=== PATIENT | female | born 1955 | race Caucasian/White ===

== ENCOUNTER 2017-06-21 11:47 | Emergency (ER) | payer BC ==
[2017-06-21] MEDS ORDERED: oxyCODONE HCL/ACETAMINOPHEN 1 TAB TABLET PO ONE (12:09)
--- NOTE | 2017-06-21 12:09 | ERNOTE ---
Upper Extremity HPI - Narrative Date of Service: 06/21/17 - General Extremities Pain Location: wrist: left Time Seen by Provider: 06/21/17 12:03 Source: patient, RN notes reviewed Exam Limitations: no limitations - Immun/Allergies/Home Medications Immunizations: IMMUNIZATION HX Immunizations Up to Date Yes Allergies/Adverse Reactions: Allergies Allergy/AdvReac Type Severity Reaction Status Date / Time No Known Allergies Allergy Unverified 06/21/17 11:58 Home Medications: HOME MEDICATIONS oxyCODONE HCL/ACETAMINOPHEN [Percocet 5 MG/325 MG] 1 - 2 tab PO Q6H PRN #20 tab 06/21/17 [Last Taken Unknown] - History of Present Illness Narrative: 62 year old female brought to the ED by her for an injury to her left wrist. She slipped and fell on their steps, landing on her bottom. She is unsure how she injured the wrist. She also reports that her butt feels numb. Date (Duration): 06/21/17 Occurred: just prior to arrival Location of Incident: home Method of Injury: Reports: fell Reason for Fall: Reports: slipped Loss of Consciousness: Reports: no loss of consciousness Associated Symptoms: Reports: tingling. Denies: weakness, numbness distally Other Injuries: Reports: other - Coccyx Prior Treament: Denies: recently seen Review of Systems - Review of Systems Constitutional: Absent: recent illness, fever, malaise EYE: Present: no symptoms reported ENT: Present: no symptoms reported Respiratory: Absent: shortness of breath, cough Cardiology: Absent: chest pain, syncope Gastrointestinal/Abdominal: Absent: nausea, vomiting, abdominal pain Genitourinary: Present: no symptoms reported Musculoskeletal: Present: back pain, joint pain, joint swelling. Absent: neck pain Skin: Absent: rash, lesions, lumps Neurological: Present: tingling. Absent: headache, dizziness/light-headedness, weakness, numbness Endocrine: Present: no symptoms reported Hematologic/Lymphatic: Present: no symptoms reported Psych: Present: no symptoms reported - Patient's Past Medical History Patient History - Medical: No pertinent hx Patient History - Cardiac/Respiratory: No pertinent hx Patient History - Cancer: No Hx of Cancer Patient History - Surgical Procedures: Back Surgery Patient History - Other: None LMP (females 10-50): Menopausal - Family History Mother Family History - Medical: No pertinent hx Father Family History - Medical: - Social History Living Situations: home Psych History: No pertinent hx Smoking Status: Current every day smoker Cigarettes Packs Per Day: 1 - Immunizations Immunizations Up to Date: Yes Physical Exam - Physical Exam General Appearance: Present: wd/wn, alert, mild distress, anxious Head Exam: Present: normal inspection, no evidence of injury Neck: Present: normal inspection, nontender, supple, full range of motion Respiratory: Present: no respiratory distress, no accessory muscle use Cardiovascular/Chest: Present: normal peripheral pulses Back Exam: Present: no CVA tenderness, vertebral tenderness - lower lumbar and sacral, decreased range of motion Extremity Exam: Present: decreased range of motion - Left wrist, joint swelling - Left wrist. Absent: pedal edema, extremity edema Neurological Exam: Present: alert, oriented, normal mood/affect, no motor/ sensory deficits Skin Exam: Present: normal color, warm/dry ED Progress - Vital Signs Patient's Vital Signs:: I have reviewed the patient's vital signs. Vital Signs: Vital Signs 06/21/17 11:52 Temperature 36.5 C Pulse Rate 71 Respiratory 18 Rate Blood Pressure 104/61 O2 Sat by Pulse 96 Oximetry - X-Ray X-Ray #1 X-Ray: wrist Interpretation: Reviewed by me X-ray Comments: Left Impression: Comminuted, mildly displaced, impacted, intra-articular distal radius fracture. Mildly displaced ulna styloid process fracture. X-Ray #2 X-Ray: hip - Left, and pelvis Interpretation: Reviewed by me X-ray Comments: No acute findings X-Ray #3 X-Ray: Sacrum/coccyx Interpretation: Reviewed by me X-ray Comments: No acute osseous findings - CT/Ultrasound CT/Ultrasound Narrative: Noncontrast lumbar CT shows no acute osseous findings - Progress/Reassessment Chief Complaint: Upper Extremity Injury/Problem Progress:: Improved Plan - Plan Plan: Patient initially reported numbness in her behind. Sensation and motor to lower extremities was intact, and she was bearing weight without difficulty. She went to xray for her wrist films and began to have numbness in her left leg. She was then incontinent of urine when she got up from the table. A lumbar CT was ordered which was negative for acute findings. She was again incontinent with transferring and continued to report left leg numbness. She was able to move the leg against resistance but with some difficulty. Left hip, pelvis and coccyx films were then done which were also negative. Her numbness eventually resolved with repositioning and ambulation. She had no further episodes of incontinence. She had reported no pain relief after taking 1 Percocet, but then improved once her wrist was splinted. Departure Clinical Impression: Fall (on) (from) other stairs and steps, initial encounter Wrist fracture, left Qualifiers: Encounter type: initial encounter Fracture type: closed Qualified Code(s): S62.102A - Fracture of unspecified carpal bone, left wrist, initial encounter for closed fracture Coccyx contusion Qualifiers: Encounter type: initial encounter Qualified Code(s): S30.0XXA - Contusion of lower back and pelvis, initial encounter - Departure Disposition: Home Follow Up Needed Condition: Stable Instructions: Wrist Fracture Treated With Immobilization, [id number] Additional Instructions: Contact orthopedics tomorrow to arrange follow up [phone] until seen by orthopedics, wear sling as needed Ice and elevate wrist You can take Tylenol for mild pain Take Percocet for more severe pain - can cause constipation, you may need a laxative Referrals: Jf Pinto, PAC [[facility]] - Prescriptions: oxyCODONE HCL/ACETAMINOPHEN [Percocet 5 MG/325 MG] 1 - 2 tab PO Q6H PRN #20 tab PRN Reason: Pain
[2017-06-21] MEDS ORDERED: oxyCODONE HCL/ACETAMINOPHEN 1 TAB TABLET ONE (12:11)
[2017-06-21 14:38] VITALS: BP 126/62
== END 2017-06-21 14:36 | disposition home or self-care (01) ==
LOC: ER 11:47
PROC: 2W3DX1Z Immobilization of Left Lower Arm using Splint (ICD-10-PCS; principal; 2017-06-21)
DX: S62.102A Fracture of unspecified carpal bone, left wrist, initial encounter for closed fracture (principal); S30.0XXA Contusion of lower back and pelvis, initial encounter; F17.210 Nicotine dependence, cigarettes, uncomplicated; W10.8XXA Fall (on) (from) other stairs and steps, initial encounter; Y92.008 Other place in unspecified non-institutional (private) residence as the place of occurrence of the external cause

== ENCOUNTER 2017-06-24 12:19 | Day surgery (SDC) | payer BC ==
[~2017-06-24 12:19] MED LIST: RINGER'S SOLUTION,LACTATED 1,000 ML IV PRN; ceFAZolin SODIUM 1 GM VIAL IV PRN
[2017-06-24] MEDS ORDERED: RINGER'S SOLUTION,LACTATED 1,000 ML IV ONE ×2 (13:00→14:40)
[2017-06-24] MEDS ORDERED: RINGER'S SOLUTION,LACTATED 900 ML IV ONE (13:25)
--- NOTE | 2017-06-24 14:43 | OR ---
Operative Report - Dictated Report Narrative: Date: 06/24/2017 Surgeon: Oscar Omer M.D. Agile Test Lead: None Preoperative diagnosis: Closed left Distal radius fracture 3 fragments with intra-articular extension, ulnar styloid fracture Postoperative diagnosis: Closed left Distal radius fracture 3 fragments with intra-articular extension, ulnar styloid fracture Operation: 1 - Open reduction internal fixation of left distal radius fracture 3 fragments with intra-articular extension 2 - Intraoperative interpretation of x-rays 3 -closed treatment of distal ulna fracture Retained implants: [employer] D rad left standard distal radius plate with associated screws Anesthesia: General plus regional Tourniquet time: 29 Minutes at 250 mmHg Estimated blood loss: Minimal Drains: None Specimen: None Complications: None Indications: Mrs. Bolton is a 62-year-old female who injured the left arm after a ground level fall. They were initially treated in the ER and splinted. Seen in the clinic and discuss the options for treatment. She wished to proceed with surgical treatment. The risks and benefits alternatives were discussed. Risks of , blood clots, bleeding, infection, nerve/tendon/blood vessel injury, malunion, nonunion, failure of implants, prominent implants, delayed tendon rupture, and need for additional procedures were discussed. Consent was obtained in the clinic. Procedure: After marking the correct extremity in the preoperative holding area, the patient was taken to the operating room. A timeout was performed. Anesthesia placed a regional block followed by general anesthetic. The arm was placed on an armboard with all bony prominences well-padded on the rest of the body. IV antibiotics consisting of Ancef were administered. A well-padded tourniquet was applied to the upper surgical arm. The arm was pre-scrubbed with chlorhexidine and prepped and draped in a standard sterile fashion. After exsanguinating the extremity and inflating the tourniquet to 250 mmHg, a longitudinal incision was made over the flexor carpi radialis. This was sharply dissected down through the skin to the tendon sheath. The tendon sheath was incised in line with the tendon. The tendon was mobilized radially, and the deep fascia was incised. The flexor pollicis longus was mobilized ulnarly exposing the pronator quadratus. Pronator quadratus was elevated off the radial aspect of the distal radius exposing the fracture. The fracture was noted to be a longitudinal split of the radial styloid as well as a transverse fracture extra-articular into the sigmoid notch. There is a ulnar styloid fracture as well. Using mini C-arm, the fracture was reduced and preliminarily pinned in the place through the radial styloid. Once it was felt that we adequately preliminarily stabilized the fracture, the plate was pinned in the place. This was visualized on AP and lateral views to be centered over the distal radius as well as not excessively distal. Once it was felt that the plate was in the correct position a series of distal locking and proximal nonlocking and locking screws were placed. Mini C-arm was utilized in order to confirm the length and placement of the screws. Once the wrist was stabilized, final images were obtained to ensure that the screws were not prominent dorsally nor into the joint space. The distal radial ulnar joint was then stressed in supination and pronation and neutral, and it was noted to be stable. It was felt that the fracture was adequately stabilized and the wounds were then thoroughly irrigated. The pronator quadratus was repaired over the plate using 4-0 Vicryl. The wounds were again thoroughly irrigated and tourniquet was deflated. Hemostasis was obtained and there was no excessive bleeding. Subcutaneous tissue was closed with 4-0 Vicryl and the skin with 4-0 nylon. Sterile dressings consisting of Xeroform, 4 x 4, soft roll, and a well- padded dorsal plaster short arm splint was applied. All sponge, sharp, and instrument counts were correct prior to closing the wounds. The patient was awoken and transferred to the postanesthesia care unit in stable condition.
[2017-06-24] MEDS ORDERED: diphenhydrAMINE HCL 50 MG/ML VIAL IV PRN (14:56)
[2017-06-24] MEDS ORDERED: NALOXONE HCL 0.4 MG/ML VIAL IV PRN (14:56)
[2017-06-24] MEDS ORDERED: HYDROmorphone HCL 2 MG/ML VIAL IV PRN (14:56)
[2017-06-24] MEDS ORDERED: ONDANSETRON HCL/PF 2 MG/ML VIAL IV PRN (14:56)
--- NOTE | 2017-06-24 15:16 | OR ---
Anesthesia Procedure Note - Anesthesia Procedure Note Date of Service: 06/24/17 Narrative: Vital Signs - Last Taken Temp 37 C 06/24/17 14:59 Pulse 96 06/24/17 15:00 Resp 16 06/24/17 15:00 BP 122/61 06/24/17 15:00 Pulse Ox 95 06/24/17 15:00 O2 Oxygen Delivery Method Room Air 06/24/17 15:13 ANESTHESIA PROCEDURE NOTE Date of Procedure: 06/24/2017. Time of procedure: 1325. Performed by: Fernie Dunlap CRNA Motion Graphics Artist: None. Preprocedure diagnosis: Left distal radius fracture. Post procedure diagnosis: Same. Procedure: Left ultrasound guided axillary nerve block for postoperative analgesia. Indications: The patient is a 62 -year-old female, who is requesting a left ultrasound-guided axillary nerve block for postoperative analgesia related to ORIF of left distal radius fracture. Findings: See below. Details of the procedure: The tissue over the intended target site was cleansed with ChloraPrep. 1 ml Lidocaine 1 % was infiltrated to the skin and subcutaneous tissue. Under sterile technique and ultrasound guidance a 22-gauge block needle was inserted to the left ulnar nerve. 10 mL's of 0.5% bupivacaine plus epinephrine 1:200,000 was injected after negative aspiration for blood. The needle was then advanced to the left median nerve. 10 mL of 0.5% bupivacaine plus epinephrine 1:200,000 was injected after negative aspiration for blood. The needle was then guided to the left radial nerve. 5 mL of 0.5% bupivacaine plus epinephrine 1 200,000 was injected after negative aspiration for blood . Finally the needle was guided to the left musculocutaneous nerve where 5 mL of 0.5% bupivacaine plus epinephrine 1-200,000 was injected after negative aspiration for blood. Spread of local anesthetic around the nerves was observed throughout the injection with ultrasound visualization. The needle was removed intact. No complications were noted. The images were retained in the hospital medical database . EBL: Minimal. Fluids: N/A. Specimen: N/A. Post procedure condition: The patient tolerated the procedure well. No complications were noted. Thank you for this consultation. Fernie Dunlap CRNA
[2017-06-24 18:30] VITALS: BP 122/65
== END 2017-06-24 12:20 | disposition home or self-care (01) ==
LOC: AMB 12:19
PROVIDERS: ATTEND Orthopaedic Surgery
PROC: 3E0T3BZ Introduction of Anesthetic Agent into Peripheral Nerves and Plexi, Percutaneous Approach (ICD-10-PCS; 2017-06-24)
PROC: 0PSJ04Z Reposition Left Radius with Internal Fixation Device, Open Approach (ICD-10-PCS; principal; 2017-06-24 13:00)
DX: S52.572A Other intraarticular fracture of lower end of left radius, initial encounter for closed fracture (principal); F17.200 Nicotine dependence, unspecified, uncomplicated; Z68.29 Body mass index [BMI] 29.0-29.9, adult; W01.0XXA Fall on same level from slipping, tripping and stumbling without subsequent striking against object, initial encounter

== ENCOUNTER 2017-08-03 11:55 | Emergency (ER) | payer BC ==
--- NOTE | 2017-08-03 13:26 | ERNOTE ---
Lower Extremity HPI - Narrative Date of Service: 08/03/17 - General Time Seen by Provider: 08/03/17 12:32 Source: patient, RN notes reviewed, old records Exam Limitations: other - emotional upset - Immun/Allergies/Home Medications Immunizations: IMMUNIZATION HX Immunizations Up to Date Yes History of Influenza Vaccine Yes Hx Pneumococcal Vaccination Yes Allergies/Adverse Reactions: Allergies Allergy/AdvReac Type Severity Reaction Status Date / Time No Known Allergies Allergy Verified 08/03/17 12:18 Home Medications: HOME MEDICATIONS Ibuprofen [Motrin] 400 - 600 mg PO Q6H PRN 06/23/17 [Last Taken 06/23/17] - History of Present Illness Narrative: Monica is a 62 year old female who was directed to come to the ED for evaluation of possible loss of blood flow to her legs. She had a CT scan of her abdomen and pelvis earlier this morning to evaluate a lump in her left lower abdomen. The CT was ordered by her conference specialist. 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 Her conference specialist's office contacted her PCP's office to see her. Her PCP was booked today so a different provider was notified, who then instructed the patient to come here. The patient fell approximately 6 weeks ago on her back steps. She sustained a left wrist fracture. She landed on her behind and had severe pain in her low back and buttocks. I saw here here immediately after the fall. She was incontinent of urine while in the department. She had a lumbar CT and xrays of her sacrum and coccyx. These showed no acute osseous abnormality. The incontinence resolved. She has continued to have pain radiating into her legs and paresthesias in her legs since. Prior Treament: Reports: recently seen, treated by physician Review of Systems - Review of Systems Constitutional: Present: decreased activity level. Absent: fever, chills EYE: Present: no symptoms reported ENT: Present: no symptoms reported Respiratory: Absent: shortness of breath, cough Cardiology: Absent: chest pain, edema, claudication Gastrointestinal/Abdominal: Absent: vomiting, diarrhea Genitourinary: Absent: frequency, dysuria Musculoskeletal: Present: muscle pain, joint pain. Absent: neck pain Skin: Present: lumps. Absent: rash, lesions Neurological: Present: numbness, tingling. Absent: weakness Endocrine: Present: no symptoms reported Hematologic/Lymphatic: Absent: easy bruising, easy bleeding Psych: Present: anxiety - Patient's Past Medical History Patient History - Medical: No pertinent hx Patient History - Cardiac/Respiratory: No pertinent hx Patient History - Cancer: No Hx of Cancer Patient History - Surgical Procedures: Back Surgery, T & A, Other Patient History - Other: None LMP (females 10-50): post - Family History Mother Family History - Medical: No pertinent hx Family History - Cardiac/Respiratory: No pertinent hx Family History - Cancer: No pertinent family hx Father Family History - Medical: , No pertinent hx Family History - Cardiac/Respiratory: No pertinent hx Family History - Cancer: Other - Social History Living Situations: spouse Abuse History: No History of abuse Psych History: No pertinent hx Smoking Status: Current every day smoker Alcohol Use: none Drug Use: none - Immunizations Immunizations Up to Date: Yes Hx Pneumococcal Vaccination: Yes History of Influenza Vaccine: Yes Physical Exam - Physical Exam General Appearance: Present: wd/wn, alert, anxious Head Exam: Present: normal inspection Neck: Present: normal inspection, nontender, supple Respiratory: Present: no respiratory distress, normal breath sounds, no accessory muscle use, lungs clear Cardiovascular/Chest: Present: regular rate, rhythm, no murmur, normal peripheral pulses Peripheral Pulses: N=norm/S=strong/W=weak/B=bound/A=absent: Dorsalis-pedis (R): Weak, Dorsalis-pedis (L): Weak Gastrointestinal/Abdominal: Present: normal bowel sounds, nondistended, soft, tenderness - LLQ mass with slight overlying ecchymosis Extremity Exam: Present: normal inspection, normal range of motion, no edema, other. Absent: calf tenderness Neurological Exam: Present: alert, oriented, normal mood/affect, no motor/ sensory deficits Skin Exam: Present: normal color, warm/dry, other - Bilateral lower extremities are of normal color and warm to touch ED Progress - Vital Signs Patient's Vital Signs:: I have reviewed the patient's vital signs. Vital Signs: Vital Signs 08/03/17 12:00 Temperature 36.8 C Pulse Rate 106 H Respiratory 16 Rate Blood Pressure 122/73 O2 Sat by Pulse 100 Oximetry - Progress/Reassessment Chief Complaint: Lower Extremity Pain/ Injury Progress:: Unchanged Plan - Plan Plan: CT results from earlier today were discussed with the patient. I explained to her that despite the CT scan showing occlusion in her ileac arteries, her circulatory status in her legs is intact and the paresthesias and pain that she has been having in her legs since her fall are not related to this. She sees her PCP next week. I discussed that she may need to be further evaluated by a vascular specialist, but that this does not need to be done on an emergent basis. Departure Clinical Impression: Paresthesia of bilateral legs Fall Qualifiers: Encounter type: initial encounter Qualified Code(s): W19.XXXA - Unspecified fall, initial encounter - Departure Disposition: Home Follow Up Needed Condition: Stable Referrals: Bess Vega, GENERAL INTERNIST AND PHYSICIAN LEADER [[facility]] -
[2017-08-03 13:27] VITALS: BP 143/74
== END 2017-08-03 13:50 | disposition home or self-care (01) ==
LOC: ER 11:55
DX: R20.2 Paresthesia of skin (principal); F17.200 Nicotine dependence, unspecified, uncomplicated; W19.XXXA Unspecified fall, initial encounter

== ENCOUNTER 2020-09-27 23:56 | Observation (INO) ==
[2020-09-28] MEDS ORDERED: MORPHINE SULFATE 4 MG/ML SYRG IV ONE ×2 (00:21→01:54)
[2020-09-28] MEDS ORDERED: LORazepam 2 MG/ML DISP.SYRIN IV ONE (00:21)
[2020-09-28 00:32] LABS: Hematocrit 37.5 % (37.0-47.0); Hemoglobin 11.8 gm/dL (12.5-16.0); Mean Cell Volume 102.5 fl (78-100); Mean Corpuscular Hemoglobin 32.2 pg (27-31); Mean Corpuscular Hgb Conc 31.5 g/dl (32-36); Mean Platelet Volume 8.5 fl (8-12.5); Neutrophil # 4.2 K/mm3 (1.3-6.0); Neutrophil % 71.3 % (42-75.0); Platelet Count 271 K/mm3 (150-450); Red Blood Count 3.66 M/mm3 (4.2-5.4); White Blood Count 5.9 K/mm3 (4.0-10.5)
--- NOTE | 2020-09-28 00:36 | ERNOTE ---
Lower Extremity HPI - Narrative Date of Service: 09/28/20 - General Lower Extremities Pain: hip: right Time Seen by Provider: 09/28/20 00:11 Source: patient, EMS Exam Limitations: no limitations - Immun/Allergies/Home Medications Immunizations: IMMUNIZATION HX Immunizations Up to Date Yes History of Influenza Vaccine More Information Required Hx Pneumococcal Vaccination More Information Required Allergies/Adverse Reactions: Allergies Allergy/AdvReac Type Severity Reaction Status Date / Time No Known Allergies Allergy Verified 09/28/20 00:14 Home Medications: HOME MEDICATIONS acetaminophen 325 mg capsule 325 mg PO Q6H PRN 05/04/18 [Last Taken 06/08/18] Omeprazole [Prilosec] 20 mg PO DAILY 06/17/20 [Last Taken Unknown] Dexamethasone [Decadron] 1 mg PO .QOD 07/10/20 [Last Taken Unknown] atorvastatin 40 mg tablet 40 mg PO DAILY #90 tab 07/24/20 [Last Taken Unknown] Apixaban [Eliquis] 5 mg PO BID 09/28/20 [Last Taken Unknown] - History of Present Illness Narrative: This patient is a 65-year-old female who is here complaining of right groin pain. She said that she fell on Thursday, 11 days ago. She scraped up her left elbow. Her left hand has been tender to touch. She landed on her right hip but had no injury. She said the hip began hurting yesterday. She points to the right groin as the source of her pain. She said that she was worried about a blood clot. She has swelling of both of her lower legs. 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 She describes the pain as an ache. The pain is worse with lying on it and wa lking. She took 2 Tylenol 4-5 hours ago. She has been using bacitracin on the abrasions on her arm. She wondered if she might of broken her knuckles. She said that her groin pain was over 10 out of 10. She received fentanyl 100 mcg in the ambulance. Her pain now is a 7 or 8. Review of Systems - Review of Systems Constitutional: Absent: fever EYE: Present: no symptoms reported ENT: Absent: ear pain, nose congestion, nasal drainage, sore throat Respiratory: Absent: shortness of breath, cough Cardiology: Absent: chest pain Gastrointestinal/Abdominal: Present: diarrhea. Absent: nausea, vomiting, constipation, abdominal pain Genitourinary: Absent: frequency, pain, dysuria, hematuria Musculoskeletal: Present: See HPI Skin: Present: See HPI Neurological: Present: other - She has a brain tumor and left-sided weakness. Endocrine: Present: no symptoms reported Hematologic/Lymphatic: Present: other - She is on Eliquis. She said she bled a lot with the abrasions. She has had previous PEs. Psych: Present: no symptoms reported Medical History (Last Reviewed 09/28/20 @ 00:33 by Rishi Ovalle MD) Refused influenza vaccine (Acute) Onset Date: ~08/18/18 Peripheral artery disease (Acute) Hyperlipidemia (Chronic) Lumbar herniated disc (Acute) Breast cyst (Acute) right Brain cancer Left wrist fracture Onset Date: ~06/2017 left distal radius and ulna Ovarian cyst left Surgical History: Surgical History (Last Reviewed 09/28/20 @ 00:33 by Rishi Ovalle MD) H/O hand surgery Onset Date: 06/04/18 left hand excision of Dupuytren's nodules, trigger finger ring and long fingers, removal of deep implants left distal radius-Dr. Omer History of back surgery History of barium enema Onset Date: 06/16/18 recheck 5 yrs with barium enema History of colonoscopy Onset Date: 06/16/18 06/16/18 [place]-Capacious redundant colon. incomplete colon to 160cm. Followed with barium enema. History of open reduction and internal fixation (ORIF) procedure Onset Date: 06/24/17 [place]-left distal radius fx, 3 fragments w/intra-articular extension History of tonsillectomy Onset Date: ~1959 Status post fine needle aspiration Onset Date: ~1983 right breast-cyst Status post trigger finger release Onset Date: 05/21/18 05/21/18 [place]-A1 raman release right index, long finger and small finger. aorta surgery Onset Date: ~08/21/17 aortobiilliac bypass gor occlusive disease per Dr. Geronimo. Both distal anastomoses end to end to the external iliac arteries. Creation of omental flap to cover the prosthesis. Family History: Family History (Last Reviewed 09/28/20 @ 00:33 by Rishi Ovalle MD) Brother Hyperlipemia Daughter Hyperlipemia Father , age 78-parotid gland cancer Cancer parotid gland Mother , age 89-pneumonia, CHF Heart disease Sister Cancer breast-dx age 66 Hyperlipemia Diabetes Sister Hyperlipemia 2 sisters Son Rheumatoid arthritis Hyperlipemia Son Hyperlipemia Social History: (Last Reviewed 09/28/20 @ 00:33 by Rishi Ovalle MD) Social History: adopted: No foster care: No Marital status: lives independently: No household members: spouse number of children: 3 caregiver/support person: No current occupational status: retired current occupation: retired Highest level of school completed/degree received: high school graduate Service: No Tobacco: Smoking Status: Current every day smoker Alcohol: alcohol intake: former Substance Use: substance use type: does not use Dietary Habits: caffeine: Yes Type: coffee Personal Safety: victim of physical abuse: No victim of emotional abuse: No Physical Exam - Physical Exam General Appearance: Present: wd/wn, alert, no apparent distress Head Exam: Present: normal inspection, no evidence of injury, other - She is wearing a stocking cap Eye Exam: Normal inspection: bilateral Ears, Nose, Throat: Present: normal ENT inspection Neck: Present: normal inspection, supple Respiratory: Present: no respiratory distress Cardiovascular/Chest: Present: other - Good distal capillary refill. Gastrointestinal/Abdominal: Present: nontender, nondistended, soft Extremity Exam: Present: other - She has no tenderness with compression of the pelvic wings or pubic bone. She has no tenderness laterally over the hips. She points to the inguinal area as a source for pain. She has no pain response when I palpate the area. The legs are edematous bilaterally. Distal sensation & circ are intact. Neurological Exam: Present: alert, oriented, normal mood/affect, other - Left- sided weakness. Skin Exam: Present: normal color, warm/dry Progress - Date and Time Seen: Date and Time: 09/28/20 02:52 The labs and x-rays are back. The patient had some hypoventilation after the pain medication. She is coming around and complaining that her pain is uncontrolled. We discussed the findings and options for care. She does not look like she will be able to tolerate, or be able to handle, the pain at home. I spoke with Dr. Mercer. She has that we get an MRI of the pelvis and order an ultrasound for the morning. The MRI is not able to be done tonight. She agrees to admit the patient. - Results and Orders Patient's Lab Results:: I have reviewed the patient's lab results. Results and Orders: Laboratory Tests 09/28/20 00:20 WBC 5.9 RBC 3.66 L Hgb 11.8 L Hct 37.5 MCV 102.5 H MCH 32.2 H MCHC 31.5 L RDW 17.0 H Plt Count 271 MPV 8.5 Immature Gran % (Auto) 0.80 H Immature Gran # (Auto) 0.05 H Neutrophils % 71.3 Lymphocytes % 12.4 L Monocytes % 12.1 H Eosinophils % 2.9 Basophils % 0.5 Nucleated RBC % 0.0 Neutrophils # 4.2 Lymphocytes # 0.73 L Monocytes # 0.7 Eosinophils # 0.2 Absolute Basophils 0.0 Laboratory Tests 09/28/20 00:20 Sodium 140 Plasma Sodium 140 Potassium 3.5 Chloride 107 H Carbon Dioxide 25.6 Anion Gap 10.9 BUN 19 Creatinine 0.96 Est GFR (Non-Af Amer) 62 D BUN/Creatinine Ratio 19.8 Random Glucose 101 Calcium 9.1 Calcium Adj for Albumin 9.6 Total Bilirubin 0.3 AST 29 ALT 47 Alkaline Phosphatase 81 Total Protein 6.3 Albumin 3.0 L Laboratory Tests 09/28/20 00:20 D-Dimer 2.61 H - Vital Signs Patient's Vital Signs:: I have reviewed the patient's vital signs. Vital Signs: Vital Signs 09/27/20 23:58 Temperature 35.4 C L Pulse Rate 94 Respiratory Rate 12 Blood Pressure 155/84 H O2 Sat by Pulse Oximetry 95 - X-Ray X-Ray #1 X-Ray: hip Interpretation: Interp. by me X-ray Comments: No acute fracture or dislocation noted. X-Ray #2 X-Ray: hand Interpretation: Interp. by me X-ray Comments: Osteoporosis. No acute fracture or dislocation. - CT/Ultrasound CT/Ultrasound Narrative: CT PELVIS WITHOUT CONTRAST FINDINGS: No pelvic fracture identified. No hip fracture or dislocation. Degenerative disc and endplate disease at L5-S1 and L4-5. IMPRESSION: No pelvic or hip fracture seen. - Progress/Reassessment Chief Complaint: Lower Extremity Pain/ Injury Departure Clinical Impression: Right groin pain, Elevated d-dimer - Departure Disposition: Still a patient Condition: Fair Referrals: Bess Vega, [employer] [Primary Care Provider] -
[2020-09-28 00:49] LABS: Anion Gap 10.9 mmol/L (6.8-13.8); BUN/Creatinine Ratio 19.8 (9.0-21.6); Bilirubin, Total 0.3 mg/dL (0.0-1.1); Ca. Corrected For Albumin 9.6 mg/dL (8.4-10.2); Calcium * 9.1 mg/dL (7.9-10.9); Carbon Dioxide 25.6 mmol/L (24-32.6); Potassium 3.5 mmol/L (3.4-4.6); Total Protein 6.3 gm/dL (6.2-8.2)
[2020-09-28] MEDS ORDERED: MORPHINE SULFATE 2 MG/ML DISP.SYRIN IV PRN (02:50)
[2020-09-28] MEDS: MORPHINE SULFATE 4 MG/ML SYRG IV PRN ×2 (04:07→05:00)
[2020-09-28] MEDS ORDERED: ACETAMINOPHEN 325 MG TABLET PO PRN (08:36)
[2020-09-28] MEDS ORDERED: DEXAMETHASONE 0.5 MG TABLET PO SCH ×3 (09:00→11:15)
[2020-09-28] MEDS ORDERED: ROSUVASTATIN CALCIUM 20 MG TABLET PO SCH ×2 (09:00→21:00)
[2020-09-28] MEDS ORDERED: oxyCODONE HCL/ACETAMINOPHEN 1 TAB TABLET PO PRN (09:37)
--- NOTE | 2020-09-28 10:07 | HPDIS ---
Chief Complaint - Chief Complaint Date of Service: 09/28/20 Time of Service: 09:29 Chief Complaint: Right leg pain History of Present Illness: 65-year-old female with a past medical history of brain cancer on chemotherapy, hyperlipidemia, peripheral artery disease, lumbar herniated disc, ovarian cyst presents from home with complaints of right leg pain. She states she fell on her right side about 2 weeks ago. She notes her right leg pain has been worsening. She states the pain starts in her groin and radiates down the front and side of her leg to her knee. She rates the pain 7 out of 10. She presented to the emergency room and was found to have a negative hip/pelvic x-ray, venous Doppler was negative for DVT, CT abdomen pelvis showed arthritic changes, no acute osseous pathology identified, MRI of the pelvis is still pending. She was admitted for intractable pain. Medical History (Last Reviewed 09/28/20 @ 10:03 by Ashley Hardy RN) Refused influenza vaccine (Acute) Onset Date: ~08/18/18 Peripheral artery disease (Acute) Hyperlipidemia (Chronic) Lumbar herniated disc (Acute) Breast cyst (Acute) right Brain cancer Left wrist fracture Onset Date: ~06/2017 left distal radius and ulna Ovarian cyst left Surgical History: Surgical History (Last Reviewed 09/28/20 @ 10:03 by Ashley Hardy RN) H/O hand surgery Onset Date: 06/04/18 left hand excision of Dupuytren's nodules, trigger finger ring and long fingers, removal of deep implants left distal radius-Dr. Omer History of back surgery History of barium enema Onset Date: 06/16/18 recheck 5 yrs with barium enema History of colonoscopy Onset Date: 06/16/18 06/16/18 [place]-Capacious redundant colon. incomplete colon to 160cm. Followed with barium enema. History of open reduction and internal fixation (ORIF) procedure Onset Date: 06/24/17 [place]-left distal radius fx, 3 fragments w/intra-articular extension History of tonsillectomy Onset Date: ~1959 Status post fine needle aspiration Onset Date: ~1983 right breast-cyst Status post trigger finger release Onset Date: 05/21/18 05/21/18 [place]-A1 raman release right index, long finger and small finger. aorta surgery Onset Date: ~08/21/17 aortobiilliac bypass gor occlusive disease per Dr. Geronimo. Both distal anastomoses end to end to the external iliac arteries. Creation of omental flap to cover the prosthesis. Family History: Family History (Last Reviewed 09/28/20 @ 10:04 by Ahsley Hardy RN) Brother Hyperlipemia Daughter Hyperlipemia Father , age 78-parotid gland cancer Cancer parotid gland Mother , age 89-pneumonia, CHF Heart disease Sister Cancer breast-dx age 66 Hyperlipemia Diabetes Sister Hyperlipemia 2 sisters Son Rheumatoid arthritis Hyperlipemia Son Hyperlipemia Social History: (Last Reviewed 09/28/20 @ 10:05 by Ashley Hardy RN) Social History: adopted: No foster care: No Marital status: lives independently: No household members: spouse number of children: 3 caregiver/support person: No current occupational status: retired current occupation: retired Highest level of school completed/degree received: high school graduate Service: No Tobacco: Smoking Status: Current every day smoker Smoking cigarettes per day: 10 Alcohol: alcohol intake: former Substance Use: substance use type: does not use Dietary Habits: caffeine: Yes Type: coffee Personal Safety: victim of physical abuse: No victim of emotional abuse: No Review Of Systems (GEN) - Review of Systems Generalized/Overall Review: Absent: Fever Respiratory: Absent: Shortness of Breath Cardiac: Absent: Chest Pain Abdominal: Absent: Abdominal Pain Musculoskeletal: Present: Other - Right leg Misc: All systems neg except as marked Immunizations: IMMUNIZATION HX Immunizations Up to Date Yes History of Influenza Vaccine More Information Required Hx Pneumococcal Vaccination More Information Required Allergies/Adverse Reactions: Allergies Allergy/AdvReac Type Severity Reaction Status Date / Time No Known Allergies Allergy Verified 09/28/20 10:05 Home Medications: HOME MEDICATIONS acetaminophen 325 mg capsule 325 mg PO Q6H PRN 05/04/18 [Last Taken 06/08/18] Omeprazole [Prilosec] 20 mg PO DAILY 06/17/20 [Last Taken Unknown] Dexamethasone [Decadron] 1 mg PO .QOD 07/10/20 [Last Taken Unknown] atorvastatin 40 mg tablet 40 mg PO DAILY #90 tab 07/24/20 [Last Taken Unknown] Apixaban [Eliquis] 5 mg PO BID 09/28/20 [Last Taken Unknown] Exam - Exam Vital Signs: Vital Signs - Last Taken Temp 36.2 C 09/28/20 09:56 Pulse 84 09/28/20 09:56 Resp 20 09/28/20 09:56 BP 136/82 09/28/20 09:56 Pulse Ox 95 09/28/20 09:56 Constitutional: Present: Alert, Cooperative, Well developed, Well nourished, No distress, Lethargic - But arousable, Elderly ENT Exam: Present: dry mucous membranes Eye Exam: bilateral eye: normal inspection, EOMI Neck: Present: non-tender, supple. Absent: lymphadenopathy (R), lymphadenopathy (L) Back Exam: Present: normal inspection, no CVA tenderness, no vertebral tenderness Respiratory: Present: lungs clear, no respiratory distress, no accessory muscle use, No wheezing. Absent: crackles, rhonchi Cardiovascular/Chest: Present: normal peripheral pulses, regular rate, rhythm, no murmur, edema - 1+ pitting edema bilateral lower extremities, left worse than right Peripheral Pulses: dorsalis-pedis (R): 1+, dorsalis-pedis (L): 1+ Abdomen: Present: Normal bowel sounds, soft, nontender Extremity: Present: pedal edema - 1+ pitting bilateral lower extremity edema, left worse than right Skin Exam: Present: normal color, warm/dry Neurologic: Present: alert, normal mood/affect Appearance: Present: appropriate appearance, appropriate insight Eye contact: Present: cooperative Thoughts: Present: normal mood /affect Diagnostic Studies: Abnormal Lab Results 09/28/20 09/28/20 09/28/20 Range/Units 00:20 00:20 00:20 RBC 3.66 L (4.2-5.4) M/mm3 Hgb 11.8 L (12.5-16.0) gm/dL MCV 102.5 H (78-100) fl MCH 32.2 H (27-31) pg MCHC 31.5 L (32-36) g/dl RDW 17.0 H (11.5-14.0) % Immature Gran % (Auto) 0.80 H (0.001-0.429) % Immature Gran # (Auto) 0.05 H (0.000-0.0310) K/mm3 Lymphocytes % 12.4 L (20-51) % Monocytes % 12.1 H (0.0-9) % Lymphocytes # 0.73 L (1.5-3.5) k/mm3 D-Dimer 2.61 H (0.19-0.49) ug/mL Chloride 107 H (97-106) mmol/L Albumin 3.0 L (3.4-5.0) gm/dl Laboratory Results WBC 5.9 K/mm3 (4.0-10.5) 09/28/20 00:20 RBC 3.66 M/mm3 (4.2-5.4) L 09/28/20 00:20 Hgb 11.8 gm/dL (12.5-16.0) L 09/28/20 00:20 Hct 37.5 % (37.0-47.0) 09/28/20 00:20 MCV 102.5 fl (78-100) H 09/28/20 00:20 MCH 32.2 pg (27-31) H 09/28/20 00:20 MCHC 31.5 g/dl (32-36) L 09/28/20 00:20 RDW 17.0 % (11.5-14.0) H 09/28/20 00:20 Plt Count 271 K/mm3 (150-450) 09/28/20 00:20 MPV 8.5 fl (8-12.5) 09/28/20 00:20 Immature Gran % (Auto) 0.80 % (0.001-0.429) H 09/28/20 00:20 Immature Gran # (Auto) 0.05 K/mm3 (0.000-0.0310) H 09/28/20 00:20 Neutrophils % 71.3 % (42-75.0) 09/28/20 00:20 Lymphocytes % 12.4 % (20-51) L 09/28/20 00:20 Monocytes % 12.1 % (0.0-9) H 09/28/20 00:20 Eosinophils % 2.9 % (0.0-3.0) 09/28/20 00:20 Basophils % 0.5 % (0.0-1.0) 09/28/20 00:20 Nucleated RBC % 0.0 k/mm3 (0-1) 09/28/20 00:20 Neutrophils # 4.2 K/mm3 (1.3-6.0) 09/28/20 00:20 Lymphocytes # 0.73 k/mm3 (1.5-3.5) L 09/28/20 00:20 Monocytes # 0.7 k/mm3 (0.0-1.0) 09/28/20 00:20 Eosinophils # 0.2 k/mm3 (0.0-0.7) 09/28/20 00:20 Absolute Basophils 0.0 k/mm3 (0.0-0.1) 09/28/20 00:20 D-Dimer 2.61 ug/mL (0.19-0.49) H 09/28/20 00:20 Sodium 140 mmol/L (132-142) 09/28/20 00:20 Plasma Sodium 140 mmol/L (130-142) 09/28/20 00:20 Potassium 3.5 mmol/L (3.4-4.6) 09/28/20 00:20 Chloride 107 mmol/L (97-106) H 09/28/20 00:20 Carbon Dioxide 25.6 mmol/L (24-32.6) 09/28/20 00:20 Anion Gap 10.9 mmol/L (6.8-13.8) 09/28/20 00:20 BUN 19 mg/dL (3-23) 09/28/20 00:20 Creatinine 0.96 mg/dL (0.4-1.4) 09/28/20 00:20 Est GFR (Non-Af Amer) 62 mL/min (60-130) D 09/28/20 00:20 BUN/Creatinine Ratio 19.8 (9.0-21.6) 09/28/20 00:20 Random Glucose 101 mg/dL (70-110) 09/28/20 00:20 Calcium 9.1 mg/dL (7.9-10.9) 09/28/20 00:20 Calcium Adj for Albumin 9.6 mg/dL (8.4-10.2) 09/28/20 00:20 Total Bilirubin 0.3 mg/dL (0.0-1.1) 09/28/20 00:20 AST 29 U/L (0-48) 09/28/20 00:20 ALT 47 U/L (19-67) 09/28/20 00:20 Alkaline Phosphatase 81 U/L (50-170) 09/28/20 00:20 Total Protein 6.3 gm/dL (6.2-8.2) 09/28/20 00:20 Albumin 3.0 gm/dl (3.4-5.0) L 09/28/20 00:20 SARS-CoV-2 (PCR) Not detected (NotDetected) 09/28/20 03:07 Assessment/Plan - Narrative Narrative: 65-year-old female with a past medical history of brain cancer on chemotherapy, hyperlipidemia, peripheral artery disease, lumbar herniated disc, ovarian cyst presents from home with complaints of right leg pain. She states she fell on her right side about 2 weeks ago. She notes her right leg pain has been worsening. She states the pain starts in her groin and radiates down the front and side of her leg to her knee. She rates the pain 7 out of 10. She presented to the emergency room and was found to have a negative hip/pelvic x-ray, venous Doppler was negative for DVT, CT abdomen pelvis showed arthritic changes, no acute osseous pathology identified, MRI of the pelvis is still pending. She was admitted for intractable pain. MRI shows no evidence for fracture, mild muscle strain involving the right gluteus medius as well as right and left pectineus and abductor brevis muscles. Plan #1 stop morphine and transition her to Percocet #2 PT to evaluate #3 resume home medications for comorbidities #4 discharge planning - Assessment/Plan (1) Right leg pain Problem: Acute (2) Fall Problem: Acute Qualifiers: Encounter type: initial encounter Qualified Code(s): W19.XXXA - Unspecified fall, initial encounter (3) Right groin pain Problem: Acute (4) Cancer of brain treated with chemotherapy Problem: Acute (5) Bilateral leg edema Problem: Acute (6) Hyperlipidemia Problem: Chronic Qualifiers: Hyperlipidemia type: mixed hyperlipidemia Qualified Code(s): E78.2 - Mixed hyperlipidemia (1) Right leg pain Problem: Acute (2) Fall Problem: Acute Qualifiers: Encounter type: initial encounter Qualified Code(s): W19.XXXA - Unspecified fall, initial encounter (3) Right groin pain Problem: Acute (4) Cancer of brain treated with chemotherapy Problem: Acute (5) Bilateral leg edema Problem: Acute (6) Hyperlipidemia Problem: Chronic Qualifiers: Hyperlipidemia type: mixed hyperlipidemia Qualified Code(s): E78.2 - Mixed hyperlipidemia Hospital Course: 65-year-old female with a past medical history of brain cancer on chemotherapy, hyperlipidemia, peripheral artery disease, lumbar herniated disc, ovarian cyst presents from home with complaints of right leg pain. She states she fell on her right side about 2 weeks ago. She notes her right leg pain has been worsening. She states the pain starts in her groin and radiates down the front and side of her leg to her knee. She rates the pain 7 out of 10. She presented to the emergency room and was found to have a negative hip/pelvic x-ray, venous Doppler was negative for DVT, CT abdomen pelvis showed arthritic changes, no acute osseous pathology identified, MRI of the pelvis is still pending. She was admitted for intractable pain. MRI shows no evidence for fracture, mild muscle strain involving the right gluteus medius as well as right and left pectineus and abductor brevis muscles. She was evaluated by physical therapy. She is stable to be discharged home today. Procedures Performed: none Results and Findings: Lab Pending Results 09/28/20 00:20: WBC 5.9, RBC 3.66 L, Hgb 11.8 L, Hct 37.5, MCV 102.5 H, MCH 32.2 H, MCHC 31.5 L, RDW 17.0 H, Plt Count 271, MPV 8.5, Immature Gran % (Auto) 0.80 H, Immature Gran # (Auto) 0.05 H, Neutrophils % 71.3, Lymphocytes % 12.4 L, Monocytes % 12.1 H, Eosinophils % 2.9, Basophils % 0.5, Nucleated RBC % 0.0, Neutrophils # 4.2, Lymphocytes # 0.73 L, Monocytes # 0.7, Eosinophils # 0.2, Absolute Basophils 0.0 09/28/20 00:20: Sodium 140, Plasma Sodium 140, Potassium 3.5, Chloride 107 H, Carbon Dioxide 25.6, Anion Gap 10.9, BUN 19, Creatinine 0.96, Est GFR (Non-Af Amer) 62 D, BUN/Creatinine Ratio 19.8, Random Glucose 101, Calcium 9.1, Calcium Adj for Albumin 9.6, Total Bilirubin 0.3, AST 29, ALT 47, Alkaline Phosphatase 81, Total Protein 6.3, Albumin 3.0 L 09/28/20 00:20: D-Dimer 2.61 H 09/28/20 03:07: SARS-CoV-2 (PCR) Not detected Discharge Location: Home Disposition: Home self-care Condition: Fair Discharge Activity: Activity as tolerated Discharge Diet: General/regular food Referrals: Bess Vega FNP [Primary Care Provider] - Complete Home Medications List: Complete Home Medication List: acetaminophen 325 mg capsule 325 mg PO Q6H PRN 05/04/18 Omeprazole [Prilosec] 20 mg PO DAILY 06/17/20 Dexamethasone [Decadron] 1 mg PO .QOD 07/10/20 atorvastatin 40 mg tablet 40 mg PO DAILY #90 tab 07/24/20 Apixaban [Eliquis] 5 mg PO BID 09/28/20
[2020-09-28] MEDS ORDERED: CYCLOBENZAPRINE HCL 10 MG TABLET PO PRN (10:21)
[2020-09-28] MEDS ORDERED: traMADol HCL 50 MG TABLET PO PRN (10:21)
[2020-09-28] MEDS: APIXABAN 5 MG TABLET PO SCH ×2 (10:26→20:18)
[2020-09-28] MEDS: PANTOPRAZOLE SODIUM 20 MG TABLET.DR PO SCH (10:26)
--- NOTE | 2020-09-28 15:40 | HP ---
Chief Complaint - Chief Complaint Date of Service: 09/28/20 Time of Service: 09:30 Chief Complaint: Right leg pain History of Present Illness: 65-year-old female with a past medical history of brain cancer on chemotherapy, hyperlipidemia, peripheral artery disease, lumbar herniated disc, ovarian cyst presents from home with complaints of right leg pain. She states she fell on her right side about 2 weeks ago. She notes her right leg pain has been worsening. She states the pain starts in her groin and radiates down the front and side of her leg to her knee. She rates the pain 7 out of 10. She presented to the emergency room and was found to have a negative hip/pelvic x-ray, venous Doppler was negative for DVT, CT abdomen pelvis showed arthritic changes, no acute osseous pathology identified, MRI of the pelvis is still pending. She was admitted for intractable pain. Medical History (Last Reviewed 09/28/20 @ 10:03 by Ashley Hardy RN) Refused influenza vaccine (Acute) Onset Date: ~08/18/18 Peripheral artery disease (Acute) Hyperlipidemia (Chronic) Lumbar herniated disc (Acute) Breast cyst (Acute) right Brain cancer Left wrist fracture Onset Date: ~06/2017 left distal radius and ulna Ovarian cyst left Surgical History: Surgical History (Last Reviewed 09/28/20 @ 10:03 by Ashley Hardy RN) H/O hand surgery Onset Date: 06/04/18 left hand excision of Dupuytren's nodules, trigger finger ring and long fingers, removal of deep implants left distal radius-Dr. Omer History of back surgery History of barium enema Onset Date: 06/16/18 recheck 5 yrs with barium enema History of colonoscopy Onset Date: 06/16/18 06/16/18 Saadia-Capacious redundant colon. incomplete colon to 160cm. Followed with barium enema. History of open reduction and internal fixation (ORIF) procedure Onset Date: 06/24/17 Kan-left distal radius fx, 3 fragments w/intra-articular extension History of tonsillectomy Onset Date: ~1959 Status post fine needle aspiration Onset Date: ~1983 right breast-cyst Status post trigger finger release Onset Date: 05/21/18 05/21/18 Kan-A1 raman release right index, long finger and small finger. aorta surgery Onset Date: ~08/21/17 aortobiilliac bypass gor occlusive disease per Dr. Geronimo. Both distal anastomoses end to end to the external iliac arteries. Creation of omental flap to cover the prosthesis. Family History: Family History (Last Reviewed 09/28/20 @ 10:04 by Ashley Hardy RN) Brother Hyperlipemia Daughter Hyperlipemia Father , age 78-parotid gland cancer Cancer parotid gland Mother , age 89-pneumonia, CHF Heart disease Sister Cancer breast-dx age 66 Hyperlipemia Diabetes Sister Hyperlipemia 2 sisters Son Rheumatoid arthritis Hyperlipemia Son Hyperlipemia Social History: (Last Reviewed 09/28/20 @ 10:05 by Ashley Hardy RN) Social History: adopted: No foster care: No Marital status: lives independently: No household members: spouse number of children: 3 caregiver/support person: No current occupational status: retired current occupation: retired Highest level of school completed/degree received: high school graduate Service: No Tobacco: Smoking Status: Current every day smoker Smoking cigarettes per day: 10 Alcohol: alcohol intake: former Substance Use: substance use type: does not use Dietary Habits: caffeine: Yes Type: coffee Personal Safety: victim of physical abuse: No victim of emotional abuse: No Review Of Systems (GEN) - Review of Systems Generalized/Overall Review: Absent: Fever Respiratory: Absent: Shortness of Breath Abdominal: Absent: Abdominal Pain Musculoskeletal: Present: Other - Right leg pain Misc: All systems neg except as marked Immunizations: IMMUNIZATION HX Immunizations Up to Date Yes History of Influenza Vaccine More Information Required Hx Pneumococcal Vaccination More Information Required Allergies/Adverse Reactions: Allergies Allergy/AdvReac Type Severity Reaction Status Date / Time No Known Allergies Allergy Verified 09/28/20 10:05 Home Medications: HOME MEDICATIONS acetaminophen 325 mg capsule 325 mg PO Q6H PRN 05/04/18 [Last Taken 06/08/18] Omeprazole [Prilosec] 20 mg PO DAILY 06/17/20 [Last Taken Unknown] Dexamethasone [Decadron] 1 mg PO .QOD 07/10/20 [Last Taken Unknown] atorvastatin 40 mg tablet 40 mg PO DAILY #90 tab 07/24/20 [Last Taken Unknown] Apixaban [Eliquis] 5 mg PO BID 09/28/20 [Last Taken Unknown] Exam - Exam Vital Signs: Vital Signs - Last Taken Temp 37.4 C 09/28/20 15:33 Pulse 101 H 09/28/20 15:33 Resp 12 09/28/20 15:33 BP 139/72 09/28/20 15:33 Pulse Ox 96 09/28/20 15:33 Constitutional: Present: Alert, Cooperative, Well developed, Well nourished, No distress, Lethargic, Elderly ENT Exam: Present: hearing grossly normal Eye Exam: bilateral eye: normal inspection, EOMI Neck: Present: non-tender, supple. Absent: lymphadenopathy (R), lymphadenopathy (L) Back Exam: Present: normal inspection, no CVA tenderness, no vertebral tenderness Respiratory: Present: lungs clear, no respiratory distress, no accessory muscle use, No wheezing. Absent: crackles, rhonchi Cardiovascular/Chest: Present: normal peripheral pulses, regular rate, rhythm, no murmur, edema - 1+ pitting bilateral lower extremities, left worse than right Peripheral Pulses: dorsalis-pedis (R): 1+, dorsalis-pedis (L): 1+ Abdomen: Present: Normal bowel sounds, soft, nontender Extremity: Present: lower extremity edema - 1+ pitting bilateral lower extr emities, left worse than right Skin Exam: Present: normal color, warm/dry Neurologic: Present: normal mood/affect Appearance: Present: appropriate appearance, appropriate insight Eye contact: Present: cooperative Thoughts: Present: normal mood /affect Diagnostic Studies: Abnormal Lab Results 09/28/20 09/28/20 09/28/20 Range/Units 00:20 00:20 00:20 RBC 3.66 L (4.2-5.4) M/mm3 Hgb 11.8 L (12.5-16.0) gm/dL MCV 102.5 H (78-100) fl MCH 32.2 H (27-31) pg MCHC 31.5 L (32-36) g/dl RDW 17.0 H (11.5-14.0) % Immature Gran % (Auto) 0.80 H (0.001-0.429) % Immature Gran # (Auto) 0.05 H (0.000-0.0310) K/mm3 Lymphocytes % 12.4 L (20-51) % Monocytes % 12.1 H (0.0-9) % Lymphocytes # 0.73 L (1.5-3.5) k/mm3 D-Dimer 2.61 H (0.19-0.49) ug/mL Chloride 107 H (97-106) mmol/L Albumin 3.0 L (3.4-5.0) gm/dl Laboratory Results WBC 5.9 K/mm3 (4.0-10.5) 09/28/20 00:20 RBC 3.66 M/mm3 (4.2-5.4) L 09/28/20 00:20 Hgb 11.8 gm/dL (12.5-16.0) L 09/28/20 00:20 Hct 37.5 % (37.0-47.0) 09/28/20 00:20 MCV 102.5 fl (78-100) H 09/28/20 00:20 MCH 32.2 pg (27-31) H 09/28/20 00:20 MCHC 31.5 g/dl (32-36) L 09/28/20 00:20 RDW 17.0 % (11.5-14.0) H 09/28/20 00:20 Plt Count 271 K/mm3 (150-450) 09/28/20 00:20 MPV 8.5 fl (8-12.5) 09/28/20 00:20 Immature Gran % (Auto) 0.80 % (0.001-0.429) H 09/28/20 00:20 Immature Gran # (Auto) 0.05 K/mm3 (0.000-0.0310) H 09/28/20 00:20 Neutrophils % 71.3 % (42-75.0) 09/28/20 00:20 Lymphocytes % 12.4 % (20-51) L 09/28/20 00:20 Monocytes % 12.1 % (0.0-9) H 09/28/20 00:20 Eosinophils % 2.9 % (0.0-3.0) 09/28/20 00:20 Basophils % 0.5 % (0.0-1.0) 09/28/20 00:20 Nucleated RBC % 0.0 k/mm3 (0-1) 09/28/20 00:20 Neutrophils # 4.2 K/mm3 (1.3-6.0) 09/28/20 00:20 Lymphocytes # 0.73 k/mm3 (1.5-3.5) L 09/28/20 00:20 Monocytes # 0.7 k/mm3 (0.0-1.0) 09/28/20 00:20 Eosinophils # 0.2 k/mm3 (0.0-0.7) 09/28/20 00:20 Absolute Basophils 0.0 k/mm3 (0.0-0.1) 09/28/20 00:20 D-Dimer 2.61 ug/mL (0.19-0.49) H 09/28/20 00:20 Sodium 140 mmol/L (132-142) 09/28/20 00:20 Plasma Sodium 140 mmol/L (130-142) 09/28/20 00:20 Potassium 3.5 mmol/L (3.4-4.6) 09/28/20 00:20 Chloride 107 mmol/L (97-106) H 09/28/20 00:20 Carbon Dioxide 25.6 mmol/L (24-32.6) 09/28/20 00:20 Anion Gap 10.9 mmol/L (6.8-13.8) 09/28/20 00:20 BUN 19 mg/dL (3-23) 09/28/20 00:20 Creatinine 0.96 mg/dL (0.4-1.4) 09/28/20 00:20 Est GFR (Non-Af Amer) 62 mL/min (60-130) D 09/28/20 00:20 BUN/Creatinine Ratio 19.8 (9.0-21.6) 09/28/20 00:20 Random Glucose 101 mg/dL (70-110) 09/28/20 00:20 Calcium 9.1 mg/dL (7.9-10.9) 09/28/20 00:20 Calcium Adj for Albumin 9.6 mg/dL (8.4-10.2) 09/28/20 00:20 Total Bilirubin 0.3 mg/dL (0.0-1.1) 09/28/20 00:20 AST 29 U/L (0-48) 09/28/20 00:20 ALT 47 U/L (19-67) 09/28/20 00:20 Alkaline Phosphatase 81 U/L (50-170) 01/15/21 00:20 Total Protein 6.3 gm/dL (6.2-8.2) 09/28/20 00:20 Albumin 3.0 gm/dl (3.4-5.0) L 09/28/20 00:20 SARS-CoV-2 (PCR) Not detected (NotDetected) 09/28/20 03:07 Assessment/Plan - Narrative Narrative: 65-year-old female with a past medical history of brain cancer on chemotherapy, hyperlipidemia, peripheral artery disease, lumbar herniated disc, ovarian cyst presents from home with complaints of right leg pain. She states she fell on her right side about 2 weeks ago. She notes her right leg pain has been worsen ing. She states the pain starts in her groin and radiates down the front and side of her leg to her knee. She rates the pain 7 out of 10. She presented to the emergency room and was found to have a negative hip/pelvic x-ray, venous Doppler was negative for DVT, CT abdomen pelvis showed arthritic changes, no acute osseous pathology identified, MRI of the pelvis is still pending. She was admitted for intractable pain. MRI shows no evidence for fracture, mild muscle strain involving the right gluteus medius as well as right and left pectineus and abductor brevis muscles. She has been too lethargic to work with PT. She received fentanyl in route to the hospital early this morning. In the ER she received morphine and lorazepam. I think her lethargy may be secondary to the narcotics and benzodiazepines. She does respond to verbal and tactile stimuli but falls asleep easily. I have discontinued all narcotics and benzodiazepines. We will continue to keep her in the hospital and observe her overnight. Possible discharge for tomorrow. Plan #1 stop morphine, start cyclobenzaprine #2 PT to evaluate #3 resume home medications for comorbidities #4 discharge planning - Assessment/Plan (1) Right leg pain Problem: Acute (2) Fall Problem: Acute Qualifiers: Encounter type: initial encounter Qualified Code(s): W19.XXXA - Unspecified fall, initial encounter (3) Right groin pain Problem: Acute (4) Cancer of brain treated with chemotherapy Problem: Acute (5) Bilateral leg edema Problem: Acute (6) Hyperlipidemia Problem: Chronic Qualifiers: Hyperlipidemia type: mixed hyperlipidemia Qualified Code(s): E78.2 - Mixed hyperlipidemia
[2020-09-29] MEDS: PANTOPRAZOLE SODIUM 20 MG TABLET.DR PO SCH (07:43)
[2020-09-29] MEDS: APIXABAN 5 MG TABLET PO SCH (08:30)
--- NOTE | 2020-09-29 10:32 | DS ---
Hospital Course: 65-year-old female was admitted for intractable pain due to right hip and right lower extremity injury secondary to fall was evaluated by bedside this morning was found to be afebrile and in no acute distress. An attempt to discharge patient home yesterday failed due to the patient being overly sedated by multiple pain medications and anxiolytics given while in the ER. The attending physician felt it was not safe to send the patient home in a condition, so the plan was to keep the patient overnight for observation until the patient return ed to her baseline. This morning the patient was noted to be fully awake alert and conversive, she was oriented in all 3 spheres. Physical therapy worked with her this morning and reported that the patient did not have any major issues with ambulation or balance so he was okay with her going home today. Patient is in agreement with this plan, she reports that her right groin pain has completely resolved. Therefore I am discharging the patient home with instructions to follow-up with her PCP in 1 week. In the meantime she is applying ice pack to the affected area and take acetaminophen for pain. Procedures Performed: none Results and Findings: Lab Pending Results 09/28/20 00:20: WBC 5.9, RBC 3.66 L, Hgb 11.8 L, Hct 37.5, MCV 102.5 H, MCH 32.2 H, MCHC 31.5 L, RDW 17.0 H, Plt Count 271, MPV 8.5, Immature Gran % (Auto) 0.80 H, Immature Gran # (Auto) 0.05 H, Neutrophils % 71.3, Lymphocytes % 12.4 L, Monocytes % 12.1 H, Eosinophils % 2.9, Basophils % 0.5, Nucleated RBC % 0.0, Neutrophils # 4.2, Lymphocytes # 0.73 L, Monocytes # 0.7, Eosinophils # 0.2, Absolute Basophils 0.0 09/28/20 00:20: Sodium 140, Plasma Sodium 140, Potassium 3.5, Chloride 107 H, Carbon Dioxide 25.6, Anion Gap 10.9, BUN 19, Creatinine 0.96, Est GFR (Non-Af Amer) 62 D, BUN/Creatinine Ratio 19.8, Random Glucose 101, Calcium 9.1, Calcium Adj for Albumin 9.6, Total Bilirubin 0.3, AST 29, ALT 47, Alkaline Phosphatase 81, Total Protein 6.3, Albumin 3.0 L 09/28/20 00:20: D-Dimer 2.61 H 09/28/20 03:07: SARS-CoV-2 (PCR) Not detected Discharge Location: Home Disposition: Home self-care Condition: Fair Discharge Activity: Activity as tolerated Discharge Diet: General/regular food Referrals: Bess Vega FNP [Primary Care Provider] - Additional Patient Instructions (free text): [facility] will call you on Thursday with follow up appointment. Prescriptions (Any new or edited meds): Cyclobenzaprine HCl [Flexeril] 5 mg PO TID PRN #20 tab PRN Reason: Muscle Spasm Transmission Status: Pending to [facility] [employer] [facility] #[id number] Complete Home Medications List: Complete Home Medication List: acetaminophen 325 mg capsule 325 mg PO Q6H PRN 05/04/18 Omeprazole [Prilosec] 20 mg PO DAILY 06/17/20 Dexamethasone [Decadron] 1 mg PO .QOD 07/10/20 atorvastatin 40 mg tablet 40 mg PO DAILY #90 tab 07/24/20 Apixaban [Eliquis] 5 mg PO BID 09/28/20 Cyclobenzaprine HCl [Flexeril] 5 mg PO TID PRN #20 tab 09/29/20 Forms: Patient Portal Registration
[2020-09-29 12:01] VITALS: BP 142/83
== END 2020-09-29 12:45 | disposition home or self-care (01) ==
LOC: ER 23:56 → MS 23:56
PROVIDERS: ADMIT Internal Medicine; ATTEND Internal Medicine
DX: S40.812A Abrasion of left upper arm, initial encounter; S76.311A Strain of muscle, fascia and tendon of the posterior muscle group at thigh level, right thigh, initial encounter; R60.9 Edema, unspecified; W19.XXXA Unspecified fall, initial encounter; Z85.841 Personal history of malignant neoplasm of brain; Z86.711 Personal history of pulmonary embolism; E78.2 Mixed hyperlipidemia; M25.551 Pain in right hip; Z79.01 Long term (current) use of anticoagulants; Z72.0 Tobacco use